=== PATIENT | male | born 1985 | race Caucasian/White ===

== ENCOUNTER 2016-06-10 01:01 | Emergency (ER) | payer BC, SELFPAY ==
[2016-06-10 02:29] LABS: Acetaminophen Less than 3.0 mcg/mL (10.0-30.0); Alcohol 204 mg/dL (Less than 10); Salicylate Less than 5.0 mg/dL (15.0-30.0)
[2016-06-10 02:31] LABS: ALT (SGPT) 55 U/L (0-55); AST (SGOT) 57 U/L (5-34); Albumin 4.8 g/dL (3.5-5.0); Alkaline Phosphatase 100 U/L (40-150); Anion Gap 19 mmol/L (10-20); BUN (Urea Nitrogen) 11 mg/dL (8.9-20.6); Bilirubin, Total 0.3 mg/dL (0.2-1.2); Calc. Creatinine Clearance 0 mL/min (70-130); Calcium 9.4 mg/dL (7.8-10.44); Carbon Dioxide 17 mmol/L (22-29); Chloride 108 mmol/L (98-107); Estimated GFR-MDRD Greater than 90; Globulin 3.2 g/dL (2.4-3.5); Glucose 87 mg/dL (70-105); Potassium 4.2 mmol/L (3.5-5.1); Sodium 140 mmol/L (136-145)
[2016-06-10 02:42] LABS: White Blood Cell (WBC) Count 10.2 thou/uL (4.8-10.8)
[2016-06-10 02:43] LABS: #Basophils 0.1 thou/uL (0.0-0.2); #Eosinphils 0.1 thou/uL (0.0-0.7); #Lymphocytes 2.4 thou/uL (1.20-3.40); #Monocytes 0.5 thou/uL (0.11-0.59); #Neutrophils 7.1 thou/uL (1.40-6.50); %Basophils 0.9 % (0.0-1.0); %Lymphocytes 23.1 % (21.0-51.0); %Monocytes 4.8 % (0.0-10.0); %Neutrophils 70.1 % (42.0-75.0); Hemoglobin 17.2 g/dL (14.0-18.0); Mean Corpuscular HGB CONC 36.1 g/dL (32.0-36.0); Mean Corpuscular Hemoglobin 34.6 pg (27.0-31.0); Mean Corpuscular Volume 95.7 fL (80.0-94.0); Mean Platelet Volume 8.3 fL (7.4-10.4); Platelet Count 200 thou/uL (130-400); RBC Distribution Width 12.2 % (11.5-14.5); Red Blood Cell (RBC) Count 4.98 mill/uL (4.70-6.10)
[2016-06-10] MEDS ORDERED: Ketorolac Tromethamine 30 MG/ML VIAL ONE (03:09)
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
== END 2016-06-10 03:28 | disposition home or self-care (01) ==
LOC: MADERS 01:01
DX: S43.402A Unspecified sprain of left shoulder joint, initial encounter (principal); S20.222A Contusion of left back wall of thorax, initial encounter; S20.212A Contusion of left front wall of thorax, initial encounter; F10.129 Alcohol abuse with intoxication, unspecified; F17.210 Nicotine dependence, cigarettes, uncomplicated; Y04.8XXA Assault by other bodily force, initial encounter; Y92.009 Unspecified place in unspecified non-institutional (private) residence as the place of occurrence of the external cause
CPT/HCPCS: 36415; 70450; 71010; 72125; 80053; 80307; 85025; 96374; J1885

== ENCOUNTER 2018-03-13 15:43 | Emergency (ER) | payer BC, SELFPAY ==
[~2018-03-13 15:43] MED LIST: Iopamidol 370 76% 125 ML VIAL FS ONE
[2018-03-13 16:23] LABS: #Basophils 0.1 thou/uL (0.0-0.2); #Eosinphils 0.1 thou/uL (0.0-0.7); #Monocytes 0.6 thou/uL (0.11-0.59); #Neutrophils 5.2 thou/uL (1.40-6.50); %Basophils 1.1 % (0.0-1.0); %Eosinophils 1.6 % (0.0-10.0); %Lymphocytes 33.2 % (21.0-51.0); %Monocytes 6.9 % (0.0-10.0); %Neutrophils 57.2 % (42.0-75.0); Hemoglobin 15.8 g/dL (14.0-18.0); Mean Corpuscular Hemoglobin 33.7 pg (27.0-31.0); Mean Corpuscular Volume 96.4 fL (78.0-98.0); Mean Platelet Volume 8.7 fL (7.4-10.4); Platelet Count 205 thou/uL (130-400); RBC Distribution Width 11.8 % (11.5-14.5)
[2018-03-13 16:42] LABS: Bilirubin Negative (Negative); Blood, Urine Negative (Negative); Clarity Clear (Clear); Glucose, Urine (Dipstick) Negative (Negative); Leukocyte Negative (Negative); Nitrite Negative (Negative); Protein, Urine (Dipstick) Negative (Neg-Trace); Urobilinogen 0.2 mg/dL (0.2-1.0); pH, Urine 5.5 (5.0-9.0)
[2018-03-13 16:43] LABS: ALT (SGPT) 31 U/L (8-55); AST (SGOT) 31 U/L (5-34); Acetaminophen Less than 6.0 mcg/mL (10.0-30.0); Albumin 4.9 g/dL (3.5-5.0); Alcohol 212 mg/dL (Less than 10); Alkaline Phosphatase 71 U/L (40-150); Anion Gap 20 mmol/L (10-20); BUN (Urea Nitrogen) 7 mg/dL (8.9-20.6); Bilirubin, Total 0.6 mg/dL (0.2-1.2); Calc. Creatinine Clearance 0 mL/min (70-130); Calcium 9.8 mg/dL (7.8-10.44); Carbon Dioxide 18 mmol/L (22-29); Chloride 104 mmol/L (98-107); Estimated GFR-MDRD 82; Globulin 2.8 g/dL (2.4-3.5); Glucose 90 mg/dL (70-105); Potassium 4.1 mmol/L (3.5-5.1); Protein, Total 7.7 g/dL (6.0-8.3); Salicylate Less than 8.0 mg/dL (15.0-30.0); Sodium 138 mmol/L (136-145)
[2018-03-13 16:43] LABS: Specific Gravity, Urine 1.004 (1.002-1.036)
[2018-03-13 16:51] LABS: Amphetamine Not Detected (NotDetected); Barbiturates Screen Not Detected (NotDetected); Benzodiazepine Screen Not Detected (NotDetected); Cocaine Metabolite Screen Not Detected (NotDetected); Methadone Not Detected (NotDetected); Methamphetamine Not Detected (NotDetected); Opiate Screen Not Detected (NotDetected); Oxycodone Screen Not Detected (NotDetected); Phencyclidine (PCP) Not Detected (NotDetected); THC/Cannabinoid Screen Not Detected (NotDetected); Tricyclic Screen Not Detected (NotDetected)
[2018-03-13 16:52] LABS: Medtox Control Line Valid? VALID (VALID)
--- NOTE | 2018-03-13 17:06 | CT ---
CT ARTERIOGRAM CHEST WITH IV CONTRAST AND 3D MIP IMAGIN03/13/18 HISTORY: Chest pain. Dyspnea. Tachycardia. FINDINGS: There is good contrast opacification of the pulmonary arteries and thoracic aorta with normal branchi ng of the great vessels. No pleural fluid, pneumothorax, or mediastinal adenopathy are evident. IMPRESSION: No CT evidence of pulmonary embolus. POS: [facility]
[2018-03-13] MEDS ORDERED: Acetaminophen 500 MG TAB ONE (17:16)
[2018-03-13] MEDS ORDERED: Sodium Chloride 0.9% 1,000 ML ONE (17:16)
[2018-03-13] MEDS ORDERED: Lorazepam 2 MG/ML VIAL ONE (17:16)
== END 2018-03-13 18:25 | disposition home or self-care (01) ==
LOC: MADERS 15:43
DX: F41.1 Generalized anxiety disorder (principal); F10.129 Alcohol abuse with intoxication, unspecified; F17.210 Nicotine dependence, cigarettes, uncomplicated
CPT/HCPCS: 36415; 71275; 80053; 80306; 80307; 81003; 84484; 85025; 96361; 96374; J2060; J7050

== ENCOUNTER 2019-05-11 21:42 | Emergency (ER) | payer SELFPAY ==
[2019-05-11] MEDS ORDERED: Ondansetron ODT 4 MG TAB ONE (22:40)
[2019-05-11] MEDS ORDERED: carBAMazepine 200 MG TAB ONE (22:40)
[2019-05-11] MEDS ORDERED: Ketorolac Tromethamine 30 MG/ML VIAL ONE (22:40)
[2019-05-11] MEDS ORDERED: HYDROcodone/Acetaminophen 10/325 mg Tablet ONE (22:40)
== END 2019-05-11 23:25 | disposition home or self-care (01) ==
LOC: MADERS 21:42
DX: G50.0 Trigeminal neuralgia (principal); I10 Essential (primary) hypertension; F17.210 Nicotine dependence, cigarettes, uncomplicated; Z79.899 Other long term (current) drug therapy
CPT/HCPCS: 96372; 99283; J1885; Q0162

== ENCOUNTER 2019-09-07 13:32 | Emergency (ER) | payer SELFPAY ==
--- NOTE | 2019-09-07 14:14 | RAD ---
EXAM: 3 views of the right hand COMPARISON: None HISTORY: Hand pain FINDINGS: 3 views of the hand shows no evidence of acute fracture or dislocation. No degenerative mikaela nges are seen. Mild dorsal soft tissue swelling is present. IMPRESSION: Unremarkable exam.
== END 2019-09-07 14:39 | disposition home or self-care (01) ==
LOC: MADERS 13:32
DX: S60.221A Contusion of right hand, initial encounter (principal); I10 Essential (primary) hypertension; F17.210 Nicotine dependence, cigarettes, uncomplicated; X58.XXXA Exposure to other specified factors, initial encounter

== ENCOUNTER 2020-05-23 09:44 | Emergency (ER) | payer SELFPAY ==
[2020-05-23 17:16] LABS: SARS-CoV-2 PCR by NAA Not Detected (NotDetected)
== END 2020-05-23 10:40 | disposition home or self-care (01) ==
LOC: MADERS 09:44
DX: J44.1 Chronic obstructive pulmonary disease with (acute) exacerbation (principal); F17.210 Nicotine dependence, cigarettes, uncomplicated; I10 Essential (primary) hypertension; Z71.6 Tobacco abuse counseling; Z20.822 Contact with and (suspected) exposure to COVID-19
CPT/HCPCS: 71045; 87635; 99406; U0003; U0005

== ENCOUNTER 2020-08-01 13:57 | Emergency (ER) | payer SELFPAY ==
[2020-08-01] MEDS ORDERED: HYDROcodone/Acetaminophen 10/325 mg Tablet ONE (14:30)
[2020-08-01 14:54] LABS: Bilirubin Negative (Negative); Blood, Urine Negative (Negative); Clarity Clear (Clear); Glucose, Urine (Dipstick) 100 mg/dL (Negative); Ketone, Urine Negative (Negative); Leukocyte Negative (Negative); Nitrite Negative (Negative); Protein, Urine (Dipstick) Negative (Neg-Trace); Specific Gravity, Urine 1.025 (1.005-1.030); Urobilinogen 0.2 mg/dL (Less than 2)
[2020-08-01 15:12] LABS: #Basophils 0.1 thou/uL (0.0-0.2); #Eosinphils 0.1 thou/uL (0.0-0.7); #Lymphocytes 1.7 thou/uL (1.20-3.40); #Monocytes 0.7 thou/uL (0.11-0.59); #Neutrophils 6.5 thou/uL (1.40-6.50); %Basophils 0.7 % (0.0-1.0); %Eosinophils 0.7 % (0.0-10.0); %Lymphocytes 19.2 % (21.0-51.0); %Monocytes 7.6 % (0.0-10.0); %Neutrophils 71.7 % (42.0-75.0); Hemoglobin 17.8 g/dL (14.0-18.0); Mean Corpuscular HGB CONC 33.1 g/dL (32.0-36.0); Mean Corpuscular Volume 99.9 fL (78.0-98.0); Mean Platelet Volume 8.8 fL (7.4-10.4); Platelet Count 212 thou/uL (130-400); RBC Distribution Width 12.3 % (11.5-14.5)
[2020-08-01 15:29] LABS: ALT (SGPT) 32 U/L (8-55); AST (SGOT) 38 U/L (5-34); Alkaline Phosphatase 92 U/L (40-110); Anion Gap 17 mmol/L (10-20); BUN (Urea Nitrogen) 6 mg/dL (8.9-20.6); Bilirubin, Total 0.5 mg/dL (0.2-1.2); Calc. Creatinine Clearance 0 mL/min (70-130); Calcium 10.2 mg/dL (7.8-10.44); Carbon Dioxide 23 mmol/L (22-29); Chloride 101 mmol/L (98-107); Globulin 3.6 g/dL (2.4-3.5); Glucose 94 mg/dL (70-105); Protein, Total 8.6 g/dL (6.0-8.3); Sodium 136 mmol/L (136-145)
== END 2020-08-01 15:49 | disposition home or self-care (01) ==
LOC: MADERS 13:57
DX: S20.212A Contusion of left front wall of thorax, initial encounter (principal); R00.0 Tachycardia, unspecified; F17.210 Nicotine dependence, cigarettes, uncomplicated; I10 Essential (primary) hypertension; W17.89XA Other fall from one level to another, initial encounter
CPT/HCPCS: 36415; 80053; 81003; 85025

== ENCOUNTER 2023-07-16 19:31 | Emergency (ER) | payer SELFPAY ==
[~2023-07-16 19:31] MED LIST changes: +Iopamidol 370 76% 100 ML VIAL ONE; -Iopamidol 370 76% 125 ML VIAL FS ONE
[2023-07-16 20:09] LABS: #Basophils 0.1 thou/uL (0.0-0.2); #Eosinphils 0.2 thou/uL (0.0-0.7); #Lymphocytes 2.3 thou/uL (1.20-3.40); #Monocytes 0.5 thou/uL (0.11-0.59); #Neutrophils 5.1 thou/uL (1.40-6.50); %Basophils 1.1 % (0.0-1.0); %Eosinophils 1.9 % (0.0-10.0); %Monocytes 6.4 % (0.0-10.0); %Neutrophils 62.6 % (42.0-75.0); Hematocrit 45.4 % (42.0-52.0); Hemoglobin 14.5 g/dL (14.0-18.0); Mean Corpuscular HGB CONC 31.9 g/dL (32.0-36.0); Mean Corpuscular Hemoglobin 32.9 pg (27.0-31.0); Mean Corpuscular Volume 103.3 fl (78.0-98.0); Mean Platelet Volume 9.8 fL (7.4-10.4); Platelet Count 158 10x3/uL (130-400); RBC Distribution Width 11.9 % (11.5-14.5); White Blood Cell (WBC) Count 8.2 10x3/uL (4.8-10.8)
[2023-07-16 20:25] LABS: ALT (SGPT) 30 U/L (8-55); AST (SGOT) 33 U/L (5-34); Albumin 4.5 g/dL (3.5-5.0); Alkaline Phosphatase 60 U/L (40-110); Anion Gap 17 mmol/L (10-20); BUN (Urea Nitrogen) 5 mg/dL (8.9-20.6); Bilirubin, Total 0.5 mg/dL (0.2-1.2); Calc. Creatinine Clearance 0 mL/min (70-130); Calcium 9.5 mg/dL (7.8-10.44); Carbon Dioxide 20 mmol/L (22-29); Chloride 101 mmol/L (98-107); Estimated GFR 113; Globulin 3.1 g/dL (2.4-3.5); Glucose 94 mg/dL (70-105); Potassium 3.6 mmol/L (3.5-5.1); Protein, Total 7.6 g/dL (6.0-8.3); Sodium 134 mmol/L (136-145)
[2023-07-16] MEDS ORDERED: Ampicillin/Sulbactam 3 GM VIAL ONE (20:55)
[2023-07-16] MEDS ORDERED: Ketorolac Tromethamine 30 MG (1 mL) VIAL ONE (21:23)
== END 2023-07-16 21:47 | disposition home or self-care (01) ==
LOC: MADERS 19:31
DX: J32.0 Chronic maxillary sinusitis (principal); I10 Essential (primary) hypertension; F17.210 Nicotine dependence, cigarettes, uncomplicated
CPT/HCPCS: 70487; 80053; 85025; 96374; 96375; J0295; J1885; Q9967

== ENCOUNTER → 2024-01-15 | Emergency (ER) | payer SELFPAY ==
[~2024-01-15] MED LIST changes: -Iopamidol 370 76% 100 ML VIAL ONE; +Ondansetron ODT 4 MG TAB ONE
== END ==
LOC: MADERS 20:53
DX: J10.1 Influenza due to other identified influenza virus with other respiratory manifestations (principal); F17.210 Nicotine dependence, cigarettes, uncomplicated
CPT/HCPCS: 87428; 99284; Q0162